=== PATIENT | male | born 1965 | race Caucasian/White ===

== ENCOUNTER → 2020-04-15 | Outpatient (CLI) | payer OTHER ==
[~2020-04-15] MED LIST: ASPIRIN EC81 M1 PO; FISH OIL 1,2001 EAC4 PO; FLEXERIL PO; HYDROCODON-ACE1 EAC7 PO; MOBIC15 MG PO; NORVASC 5 MG TAB5 MG PO; SYNTHROID100 MCG PO; ZOCOR40 MG PO
--- NOTE | 2020-04-15 17:59 | CARDNUC ---
[place] [address] CARDIAC NUCLEAR IMAGING REPORT Name: ANDREW MEDRANO Room: [facility]#: [id number] Admission: 04/15/20 Attend Phys: Seng Gagnon, Discharge: Date of : 63 Date of Service: 04/15/20 1759 Report #: [id number] THIS REPORT FOR: cc: Raquel Keene Kathleen M. DO Liston, Michael J. MD [facility] ~ APPROVED REPORT Study performed: 04/15/2020 11:56:34 Exam: Nuclear Stress Test Indication: Chest discomfort, increased dyspnea, ABN EKG, Increased calcium score, increased fatigue. Patient Location: Out-Patient Stress Tech: Tati Giles Stress Nurse: Sofya Kim R.N. Ht: 6 ft 0 in Wt: 196 lbs BSA: 2.11 m2 BMI: 26.57 Medical History Medical History: Chest Discomfort, Dyspnea, ABN EKG, Hypothyroidism, increased Calcium Score, Palpitations, RBBB, Graves Disease, increased fatigue/malaise, Pre DM, HTN, HLD, CAD, Former Smoker. Medications: Amlodipine, ASA 81 Mg, Rosuvastatin. Allergies: PNC. Cardiac Risk Factors: Age, Pre DM, FHX of CAD, HTN, Hyperlipidemia, SOB, Past Smoker, RBBB, increased Calcium Score. Previous Cardiac Procedures: None Pretest Chest Pain Characteristics: No chest pain Exercise History: Indeterminate Physical Disabilities: Back and leg/knee pain. Meds Held (24 hrs): None Stress Test Details Stress Test: Exercise stress testing was performed using a Ankur protocol. HR Resting HR: 73 bpm Max Heart Rate (APMHR): 164 bpm Max HR Achieved: 158 bpm Target HR (85% APMHR): 139 bpm % of APMHR: 96 Recovery HR: 108 [place] [address] CARDIAC NUCLEAR IMAGING REPORT Name: ANDREW MEDRANO Room: [facility]#: [id number] Admission: 04/15/20 Attend Phys: Seng Gagnon, Discharge: Date of : 63 Date of Service: 04/15/20 1759 Report #: [id number] Resting BP: 128/82 mmHg Max BP: 149/83 mmHg ECG Resting ECG: Sinus Rhythm Stress ECG: Sinus Tachycardia ST Change: None Arrhythmia: None Recovery ECG: Sinus Rhythm Recovery ST Change: None Recovery Arrhythmia: None Clinical Reason for Termination: Completed protocol, Maximal effort, Patient Request. Stress Symptoms: Dyspnea, Leg fatigue, back and knee pain, lightheadedness/dizziness, Headache. Exercise duration: 10 min 34 sec Exercise capacity: 12.73 METs Overall Exercise Capacity for Age: Normal The patient exhibited good exercise tolerance on the standard Ankur protocol. He had no significant symptoms to suggest angina. Nurse Comments A 55 year old male presented for a Treadmill Nuclear Stress Test r/t ABN EKG, increased calcium score, increased fatigue/malaise, dyspnea, chest discomfort, palpitations. Treadmill tolerated to Stage 4, target HR achieved. Recovery unremarkable. Patient was stable and stated he felt good when escorted to Nuclear Medicine for imaging. Stress ECG Conclusion The baseline twelve-lead EKG shows sinus rhythm with no significant ST segment or T wave abnormality. EKGs obtained during and post exercise show sinus rhythm and sinus tachycardia with no significant ST segment or T wave changes when compared to baseline. There were no stress-induced arrhythmias. NM EXAM: Myocardial Perfusion REST/STRESS Imaging Protocol: Rest Tc-99m/Stress Tc-99m 1 day Resting Data Rest SPECT myocardial perfusion imaging was performed in supine position 30 minutes following the intravenous injection of 9.8 mCi of Tc-99[place] [address] CARDIAC NUCLEAR IMAGING REPORT Name: ANDREW MEDRANO Room: [facility]#: [id number] Admission: 04/15/20 Attend Phys: Seng Gagnon, Discharge: Date of : 63 Date of Service: 04/15/20 1759 Report #: [id number] Time of rest injection: 10:15 The images were gated to evaluate regional wall motion and calculate left ventricular ejection fraction. Administration Route: IV Administration Site: Right Hand Exercise Stress At peak stress, the patient was injected intravenously with 33.6mCi of Tc-99m Sestamibi. Time of stress injection: 12:05 Administration Route: IV Administration Site: Right Hand Heart Rate at time of stress injection: 158 bpm. Patient continued to exercise for 1 minute(s). Gated Stress SPECT was performed 30 minutes after stress injection. The images were gated to evaluate regional wall motion and calculate left ventricular ejection fraction. Prone imaging was performed. Study Quality Study: Good Artifact: No artifact Study Data At rest, the left ventricular ejection fraction was 67%.. Post stress, the left ventricular ejection was 72%.. TID = 0.78. Perfusion Normal left ventricular perfusion. Wall Motion Normal left ventricular wall motion. Nuclear Conclusion ECG Findings: negative for ischemia Clinical Findings: negative for ischemia Nuclear Findings: negative for ischemia Exercise Capacity: normal Left Ventricular Function: normal Risk Study: low Perfusion study show no defect to suggest infarct or ischemia. Left ventricular systolic function appears normal on gated studies. This [place] [address] CARDIAC NUCLEAR IMAGING REPORT Name: ANDREW MEDRANO Room: [facility]#: [id number] Admission: 04/15/20 Attend Phys: Seng Gagnon, Discharge: Date of : 63 Date of Service: 04/15/20 1759 Report #: [id number] <Conclusion> The baseline twelve-lead EKG shows sinus rhythm with no significant ST segment or T wave abnormality. EKGs obtained during and post exercise show sinus rhythm and sinus tachycardia with no significant ST segment or T wave changes when compared to baseline. There were no stress-induced arrhythmias. <ELECTRONICALLY SIGNED> By: Terell Brown MD, FACC 04/15/201758 [id number] Terell Brown MD, FACC /INF
== END ==
LOC: M.NUC 04-03 13:15
PROVIDERS: ATTEND Internal Medicine
DX: R00.0 Tachycardia, unspecified (principal); I10 Essential (primary) hypertension; R94.31 Abnormal electrocardiogram [ECG] [EKG]; R93.1 Abnormal findings on diagnostic imaging of heart and coronary circulation; E78.5 Hyperlipidemia, unspecified; E03.9 Hypothyroidism, unspecified; I25.10 Atherosclerotic heart disease of native coronary artery without angina pectoris; Z79.899 Other long term (current) drug therapy; Z87.891 Personal history of nicotine dependence